=== PATIENT | male | born 1960 | race Two or more races ===

== ENCOUNTER 2025-03-13 09:44 | Emergency (ER) | payer MEDICAID, SELFPAY ==
[2025-03-13 09:59] VITALS: BP 133/71; PULSE 106; RESP 18; TEMP 37.3; O2SAT 95
--- NOTE | 2025-03-13 10:07 | XR_ITS ---
Examination: PA lateral chest 2 views TECHNIQUE: Upright PA lateral chest 2 views Date and time: March 13, 2025 1014 hours, comparison 02/22/2024 INDICATIONS: Chest pain today. FINDINGS: Early heart failure. Mild enlargement cardiac contour. Prominent vascular congestion. Early septal edema at the lung bases. Moderate hyperexpansion. Moderate thoracic spondylosis IMPRESSION: Early heart failure
--- NOTE | 2025-03-13 10:07 | EKG_ITS ---
[facility] Test Date: 2025-03-13 Pat Name: JESENIA PAINTER Department: Room: - Gender: Male Vulcanizer: : 1960 Requested By: Roly Crenshaw (DOMI) Order Number: [id number] Reading MD: Roly Crenshaw (VISUAL BASIC PROGRAMMER) Measurements Intervals Eddy Rate: 109 P: 21 MT: 136 QRS: -2 QRSD: 88 T: 33 QT: 321 QTc: 434 Interpretive Statements SINUS TACHYCARDIA LOW QRS VOLTAGE IN PRECORDIAL LEADS [QRS DEFLECTION < 1.0 mV IN CHEST LEADS] ABNORMAL RHYTHM ECG Compared to ECG 11/11/2022 22:35:40 No significant changes /store/S0/[id number].pdf
--- NOTE | 2025-03-13 10:07 | XR_ITS ---
Examination: CT brain head without contrast. 2-D sagittal coronal reconstructions Date and time of exam:March 13, 2025, 1034 hours,. INDICATIONS: Generalized weakness today CTDI: vol (mGy):56.4 DLP: (mGycm):1205 Technique: Multiple CT axial sections of the brain have been obtained, 5 mm slice thickness. Contrast has not been administered. 2-D sagittal, coronal reconstructions have been obtained Low dose protocols were performed. One or more of the following dose reduction techniques were used; automated exposure control, adjustment of the mA and/or KV according to patient size, use of iterative reconstruction technique. Findings: No significant ventricular enlargement. Intra-axial or extra-axial hemorrhage density is not seen. No mass effect or midline shift Basal cisterns are not remarkable. Fourth ventricle is midline. Cranial vault intact. Impression: Negative for acute hemorrhage, mass effect or midline shift Advise clinical correlation follow-up accordingly
--- NOTE | 2025-03-13 10:08 | PD.EDRME ---
Rapid Medical Screening Exam RME Arrival date/time: 03/13/25 09:44 65-year-old male presents to the Emergency Department for complaints of headache generalized bodyaches and weakness Chief Complaint: Weakness Vital signs: Vital Signs Temperature 99.2 F 03/13/25 09:59 Pulse Rate 106 H 03/13/25 09:59 Respiratory Rate 18 03/13/25 09:59 Blood Pressure 133/71 H 03/13/25 09:59 Pulse Oximetry (%) 95 03/13/25 09:59 Oxygen Delivery Method Room Air 03/13/25 09:59
[2025-03-13 10:48] LABS: Basophils # (Auto) 0.0 Thou/mm3 (0.0-0.2); Basophils % (Auto) 0 % (0-2.5); Eosinophils # (Auto) 0.0 Thou/mm3 (0.0-0.5); Eosinophils % (Auto) 0 % (0-10); Hematocrit 44.2 % (41.0-53.0); Hemoglobin 14.6 g/dL (13.5-16.0); Immature Granulocytes Auto 0.02 Thou/mm3 (0.00-0.00); Lymphocytes # (Auto) 0.9 Thou/mm3 (1.0-4.8); Lymphocytes % (Auto) 11 % (10-50); Mean Corpuscular HGB Conc 33.0 g/dl (31.0-37.0); Mean Corpuscular Hemoglobin 28.6 pg (25.0-35.0); Mean Corpuscular Volume 87 fL (80-100); Monocytes # (Auto) 0.6 Thou/mm3 (0.0-0.8); Monocytes % (Auto) 7 % (0-12); Neutrophils # (Auto) 6.9 Thou/mm3 (1.8-7.7); Neutrophils % (Auto) 82 % (37-80); Nucleated Red Blood Cell # 0.00 Thou/mm3 (0.00-0.00); Nucleated Red Blood Cell % 0 /100 WBC (0); Platelet Count 200 Thou/mm3 (140-440); RDW Standard Deviation 45.0 fL (35.1-43.9); Red Blood Count 5.10 Miln/mm3 (4.50-5.90); White Blood Count 8.4 Thou/mm3 (3.8-10.6)
[2025-03-13 11:04] LABS: Collection Type, Urine Clean Catch
[2025-03-13 11:13] LABS: Alanine Aminotransferase 26 U/L (10-49); Albumin, Serum 4.0 gm/dL (3.4-4.8); Albumin/Globulin Ratio 1.6 (1.2-2.2); Alkaline Phosphatase 99 U/L (46-116); Anion Gap 7 (7-16); Aspartate Amino Transferase 23 U/L (0-34); BUN/Creatinine Ratio 10 Ratio (12-20); Bilirubin,Total 0.5 mg/dL (0.3-1.2); Blood Urea Nitrogen 10 mg/dL (9-23); Calcium 9.0 mg/dL (8.3-10.6); Calcium (Corrected) 9.0 mg/dL (8.5-10.1); Carbon Dioxide 30.5 mMol/L (20.0-31.0); Chloride 103 mMol/L (98-107); Creatinine (Component) 1.0 mg/dL (0.6-1.3); Estimated Creatinine Clearance 102.6 mL/min (>60); Globulin 2.5 gm/dL (2.3-3.5); Glucose 145 mg/dL (74-106); Osmolality,Calculated 281 (275-295); Potassium 3.4 mMol/L (3.4-5.1); Sodium 140 mMol/L (136-145); Total Protein 6.5 gm/dL (5.7-8.2); Troponin I < 0.002 ng/mL (0.0-0.045); eGFR > 60 See Note
[2025-03-13 11:14] LABS: Bacteria,Urine 3+; Bilirubin,Urine Negative (Negative); Blood,Urine Trace (Negative); Clarity,Urine Clear (Clear/Hazy); Color,Urine Yellow (Lt Yel-Yel); Glucose, Urine 4+ (Negative); Ketones,Urine Negative (Negative); Leukocyte Esterase,Urine Positive (Negative); Nitrite,Urine Negative (Negative); PH,Urine 6.5 (5.0-7.0); Protein,Urine 1+ (Neg - Trace); RBC,Urine 5 /hpf (0-3); Specific Gravity,Urine 1.015 (1.001-1.035); Squamous Epithelial Cell,Urine 1 /hpf (0-5); Urobilinogen,Urine Negative mg/dL (0.0-1.0); WBC,Urine 105 /hpf (0-5)
[2025-03-13 11:35] LABS: Culture Indicated,Urine Yes
--- NOTE | 2025-03-13 12:00 | PD.EDADULT ---
ED General RME/HPI General Chief complaint: Weakness Stated complaint: WEAK, TIRED, PROSTATE INFECTION Time Seen by Provider: 03/13/25 11:30 Arrival date/time: 03/13/25 09:44 RME / HPI RME / HPI narrative: 65-year-old male patient with significant history of prostate enlargement, currently taking Flomax, came in for evaluation regarding dysuria, chills, severity moderate. Patient also complaining of urgency. Also complaining of nocturia despite taking Flomax. Patient also complaining of bodyaches, and headache. Denies any fever denies any vomiting denies any other complaints. No medication was taken prior to ER visit. Patient last seen by urologist about 6 months ago. Related Data Home Medications ?Medication ?Instructions ?Recorded ?Confirmed albuterol sulfate 90 mcg/actuation 1 inh inhalation QID PRN Dyspnea 11/08/22 02/22/24 aerosol inhaler atorvastatin 40 mg tablet (Lipitor) 40 mg PO QPM 11/08/22 02/22/24 ergocalciferol (vitamin D2) 1,250 50,000 unit PO 2 X WEEKLY 02/22/24 02/22/24 mcg (50,000 unit) capsule (Vitamin D2) lisinopril 20 mg tablet (Zestril) 20 mg PO QDAY 02/22/24 02/22/24 semaglutide 3 mg tablet (Rybelsus) 3 mg PO DAILY 02/22/24 02/22/24 Previous Rx's ?Medication ?Instructions ?Recorded lancet with blood glucose test #300 ea 11/19/22 strips and pen needles combo pack (Tempo Refill Kit combo pack) fosfomycin tromethamine 3 gram 1 packet PO Q OTHER DAY 7 doses #7 02/24/24 oral packet ea tamsulosin 0.4 mg capsule 0.4 mg PO QDAY 30 days #30 caps 02/24/24 ciprofloxacin HCl 500 mg tablet 500 mg PO BID #14 tabs 03/13/25 (Cipro) finasteride 5 mg tablet (Proscar) 5 mg PO QDAY #30 tabs 03/13/25 ibuprofen 800 mg tablet 800 mg PO Q8H PRN pain #30 tabs 03/13/25 Allergies Allergy/AdvReac Type Severity Reaction Status Date / Time No Known Allergies Allergy Verified 03/13/25 09:52 Review of Systems Review of Systems Narrative Review of Systems: Review of system reviewed and within normal limits except mentioned in HPI ED Exam Narrative Physical exam: VITAL SIGNS: Reviewed. GENERAL APPEARANCE: Alert and interactive, follows commands, no acute distress, HEAD AND FACE: Non-traumatic. ENT: PERRL, pink conjunctivitis, eyelid no trauma, Mucous membrane moist. NECK: Supple, nontender, no nuchal rigidity. CHEST: No tenderness, no crepitus, no paradoxical movement, no retractions. LUNGS: Clear, well ventilated, symmetric, no rales, no wheezing, no ronchi, no stridor, good breath sounds bilaterally. HEART: Regular rate, regular rhythm, no murmur, no gallops. ABDOMEN: Soft, positive bowel sounds, nondistended, no guarding, nontender, no rebound, no masses, negative CVA tenderness bilateral RECTAL: Deferred. GENITAL: Deferred. NEUROLOGICAL: Gross motor function intact sensory function intact, Appropriate for age. MUSCULOSKELETAL: low back nontender, full range of motion. EXTREMITIES: Nontender, full range of motion. SKIN: Color pink, dry, no rash, no lacerations, no abrasions, no contusions. LYMPHATICS: Deferred. Course Quality Measures none Orders Category Date Time Status EKG (ED ONLY) *Do not use* NOW Care 03/13/25 10:[address] head/brain wo con Stat Exams 03/13/25 10:07 Completed EKG (ED Only) Stat Exams 03/13/25 10:07 Draft XR chest 2V Stat Exams 03/13/25 10:07 Completed CBC Stat Lab 03/13/25 10:38 Completed Comprehensive Metabolic Panel Stat Lab 03/13/25 10:38 Completed Troponin I Stat Lab 03/13/25 10:38 Completed UA, C/S IF [Urinalysis, C/S if Indicated] Stat Lab 03/13/25 10:52 Completed Urine Culture Stat Lab 03/13/25 10:52 Received 1,000 mg IM w/Lido* 1% Med 03/13/25 12:00 Ordered cefTRIAXone [Rocephin] 1,000 mg Lidocaine 1% 20 ml [Xylocaine 1% 20 ML] 2.1 ml IM X1 Acetaminophen Tab [Tylenol ES Tab] Med 03/13/25 12:05 Discontinued 1,000 mg PO X1 ONE Ibuprofen Tab [Motrin Tab] Med 03/13/25 12:05 Discontinued 800 mg PO X1 ONE Vital Signs Vital signs: Vital Signs Temperature 99.2 F 03/13/25 09:59 Pulse Rate 106 H 03/13/25 09:59 Respiratory Rate 18 03/13/25 09:59 Blood Pressure 133/71 H 03/13/25 09:59 Pulse Oximetry (%) 95 03/13/25 09:59 Oxygen Delivery Method Room Air 03/13/25 09:59 Discharge Plan Plan Patient Disposition: HOME (Self Care) Discharge Disposition comment: Stable Prescriptions/Referrals Prescriptions/Med Rec: New ciprofloxacin HCl [Cipro] 500 mg tablet 500 mg PO BID Qty: 14 0RF ibuprofen 800 mg tablet 800 mg PO Q8H PRN (Reason: pain) Qty: 30 0RF finasteride [Proscar] 5 mg tablet 5 mg PO QDAY Qty: 30 0RF No Action (DME) Tempo Refill Kit Combo Pack See Rx Instructions .Route Qty: 300 0RF Rx Instructions: As directed atorvastatin [Lipitor] 40 mg Tablet 40 mg PO QPM albuterol sulfate 90 mcg/actuation Hfa Aerosol Inhaler 1 inh INHALATION QID PRN (Reason: Dyspnea) ergocalciferol (vitamin D2) [Vitamin D2] 1,250 mcg (50,000 unit) capsule 50,000 unit PO 2 X WEEKLY Patient Comments: MARBELLA 1 C PSULA POR V A ORAL CADA SEMANA Rybelsus 3 mg tablet 3 mg PO DAILY Patient Comments: MARBELLA NELY TABLETA POR V A ORAL TODOS LOS D lisinopril [Zestril] 20 mg tablet 20 mg PO QDAY tamsulosin 0.4 mg Capsule 0.4 mg PO QDAY 30 Days Qty: 30 3RF fosfomycin tromethamine 3 gram packet 1 packet PO Q OTHER DAY Qty: 7 0RF Rx Instructions: The patient with get 7 doses in 14 days, after completing his ertapenem 1g daily IV for presumed prostatitis. Problem List Clinical Impression: Acute UTI, History of BPH Patient/Caregiver Discharge Instructions Discharge Activity: activity as tolerated Education Materials: Urinary Tract Infections in Men Additional Instructions: Thank you for the opportunity for serving you today. You are stable for discharged . You are advised to: Follow-up with your PCP in 1 to 2 days Please follow-up with your urologist in few days Return to ED for worsening of symptoms Increase oral fluids including cranberry juice Take medication as prescribed Print Language: Djiboutian Stand Alone Forms: Hilda Award Info., Patient Portal Info Letter MATIAS/LES Supervising Physician MATIAS/LES Supervising Physician: MD Jewel MDM Narrative MDM hospital course (for use when minimal MDM required): 65-year-old male patient with significant history of prostate enlargement, currently taking Flomax, came in for evaluation regarding dysuria, chills, severity moderate. Patient also complaining of urgency. Also complaining of nocturia despite taking Flomax. Patient also complaining of bodyaches, and headache. Denies any fever denies any vomiting denies any other complaints. No medication was taken prior to ER visit. Patient last seen by urologist about 6 months ago. Patient CBC came back with no leukocytosis. CMP unremarkable. Urinalysis positive for UTI. CT head came back unremarkable CT chest came back unremarkable. EKG showed sinus tachycardia, ventricular rate of 109 bpm, no ST segment elevation or depression noted. Patient received ceftriaxone IM, and Tylenol. Significant proved in symptoms noted. Patient stable for discharge home. Patient was advised to follow-up with urologist in few days. Patient agrees with the plan. She told me she will go to [place] for urology checkup. Patient is stable for discharge home Medication Administration(s) Medication Administration History Discontinued Medications Acetaminophen (Acetaminophen 500 Mg Tablet) 1,000 mg PO X1 ONE Stop: 03/13/25 12:06 Ceftriaxone Sodium 1,000 mg/ (Lidocaine HCl 2.1 ml) 0 mg IM X1 ONE Stop: 03/13/25 12:01 Last Admin: 03/13/25 12:07 Dose: 2.1 mg Ibuprofen (Ibuprofen Tab 400 Mg Tablet) 800 mg PO X1 ONE Stop: 03/13/25 12:06
[2025-03-13] MEDS: cefTRIAXone 1,000 MG, LIDOCAINE 1% 20 ML 2.1 ML IM (12:07)
[2025-03-13] MEDS: ACETAMINOPHEN 500 MG TABLET 1000 MG PO (12:12)
[2025-03-13] MEDS: IBUPROFEN TAB 400 MG TABLET 800 MG PO (12:12)
== END 2025-03-13 20:21 | disposition home or self-care (01) ==
LOC: SERX 12:25
PROVIDERS: Nurse Practitioner Primary Care; Emergency Provider Emergency Medicine
DX: N39.0 Urinary tract infection, site not specified (principal); N40.1 Benign prostatic hyperplasia with lower urinary tract symptoms; R35.1 Nocturia; R51.9 Headache, unspecified
CPT/HCPCS: 36415; 70450; 71046; 80053; 81001; 84484; 85025; 87077; 87086; 87186; 93005; 96372; 99284; J0696; J3490; A9270